=== PATIENT | female | born 1950 | race Caucasian/White ===

== ENCOUNTER 2019-05-25 14:03 | Outpatient (CLI) | payer MEDICARE ==
--- NOTE | 2019-05-25 14:15 | RAD ---
2 views of the chest: 05/25/2019 COMPARISON: 06/04/2011 HISTORY: Cough FINDINGS: Mild increased linear interstitial density. Hyperinflation noted. Stable prominence of card iac silhouette. No pneumothorax, pleural fluid, focal consolidation, or alveolar edema. There is prominent degenerative change at the thoracolumbar junction. IMPRESSION: Chronic findings as above. No radiographic evidence of acute cardiopulmonary disease.
== END 2019-05-25 14:04 | disposition home or self-care (01) ==
LOC: RAD-FRANK 14:03
PROVIDERS: ATTEND Nurse Practitioner Family
DX: R05 Cough (principal); R91.8 Other nonspecific abnormal finding of lung field; M47.815 Spondylosis without myelopathy or radiculopathy, thoracolumbar region
CPT/HCPCS: 71046